=== PATIENT | male | born 2000 | race African-American/Black ===

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

== ENCOUNTER 2021-10-28 08:51 | Emergency (ER) | payer OTHER ==
[2021-10-28] MEDS ORDERED: Ondansetron ODT 4 MG TAB ONE (09:09)
[2021-10-28 10:01] LABS: #Eosinphils 0.2 thou/uL (0.0-0.7); #Lymphocytes 2.1 thou/uL (1.20-3.40); #Monocytes 0.9 thou/uL (0.11-0.59); #Neutrophils 3.9 thou/uL (1.40-6.50); %Basophils 0.4 % (0.0-1.0); %Eosinophils 2.7 % (0.0-10.0); %Lymphocytes 29.2 % (28.0-48.0); %Monocytes 12.7 % (0.0-4.0); Hemoglobin 14.8 g/dL (14.0-18.0); Mean Corpuscular HGB CONC 32.1 g/dL (32.0-36.0); Mean Corpuscular Hemoglobin 24.9 pg (25.0-35.0); Mean Corpuscular Volume 77.8 fL (78.0-98.0); Mean Platelet Volume 11.8 fL (7.4-10.4); Platelet Count 114 thou/uL (130-400); Platelet Morphology Comment Appears Decreased; RBC Distribution Width 13.6 % (11.5-14.5); RBC Morphology Normal; Red Blood Cell (RBC) Count 5.93 mill/uL (4.00-5.20); White Blood Cell (WBC) Count 7.1 thou/uL (4.8-10.8)
[2021-10-28 10:05] LABS: ALT (SGPT) 16 U/L (8-55); AST (SGOT) 16 U/L (5-34); Albumin 3.9 g/dL (3.5-5.0); Alkaline Phosphatase 117 U/L (50-130); Anion Gap 10 mmol/L (10-20); BUN (Urea Nitrogen) 8 mg/dL (8.9-20.6); Bilirubin, Total 0.7 mg/dL (0.2-1.2); CK (CPK) 276 U/L (30-200); Calc. Creatinine Clearance 0 mL/min (70-130); Calcium 9.2 mg/dL (7.8-10.44); Carbon Dioxide 28 mmol/L (22-29); Chloride 103 mmol/L (98-107); Glucose 100 mg/dL (70-105); Lipase 9 U/L (8-78); Potassium 4.4 mmol/L (3.5-5.1); Protein, Total 7.9 g/dL (6.0-8.3); Sodium 137 mmol/L (136-145)
== END 2021-10-28 10:48 | disposition home or self-care (01) ==
LOC: ERS 08:51
DX: R11.2 Nausea with vomiting, unspecified (principal)
CPT/HCPCS: 36415; 80053; 82550; 83690; 83735; 84484; 85025; 93005; Q0162

== ENCOUNTER 2021-12-21 09:25 | Emergency (ER) | payer OTHER ==
[2021-12-21] MEDS ORDERED: Ondansetron PF 4 MG/2 ML Vial ONE (10:24)
[2021-12-21] MEDS ORDERED: Morphine 4 MG/ML VIAL ONE (10:24)
[2021-12-21 10:31] LABS: Bacteria/HPF None Seen HPF (None Seen); Bilirubin 1+ (Negative); Blood, Urine Negative (Negative); Clarity Clear (Clear); Glucose, Urine (Dipstick) Normal (Negative); Ketone, Urine 10 mg/dL (Negative); Leukocyte Negative Leu/uL (Negative); Nitrite Negative (Negative); Protein, Urine (Dipstick) 70 mg/dL (Neg-Trace); RBC/HPF 0-3 HPF (0-3); Specific Gravity, Urine 1.037 (1.002-1.036); Squamous Epithelial 0-3 HPF (0-3); Urobilinogen Normal mg/dL (Less than 2)
[2021-12-21 11:01] LABS: Mean Corpuscular HGB CONC 31.5 g/dL (32.0-36.0); Mean Corpuscular Hemoglobin 24.5 pg (27.0-31.0); Mean Corpuscular Volume 77.7 fL (78.0-98.0); Red Blood Cell (RBC) Count 6.56 mill/uL (4.70-6.10); White Blood Cell (WBC) Count 14.6 thou/uL (4.8-10.8)
[2021-12-21 11:02] LABS: #Lymphocytes 1.5 thou/uL (1.20-3.40); #Monocytes 1.4 thou/uL (0.11-0.59); #Neutrophils 11.7 thou/uL (1.40-6.50); %Basophils 0.2 % (0.0-1.0); %Lymphocytes 10.1 % (21.0-51.0); %Monocytes 9.8 % (0.0-10.0); %Neutrophils 79.9 % (42.0-75.0); ALT (SGPT) 16 U/L (8-55); AST (SGOT) 16 U/L (5-34); Albumin 4.1 g/dL (3.5-5.0); Alkaline Phosphatase 103 U/L (40-110); Anion Gap 13 mmol/L (10-20); BUN (Urea Nitrogen) 12 mg/dL (8.9-20.6); Bilirubin, Total 0.6 mg/dL (0.2-1.2); Calc. Creatinine Clearance 0 mL/min (70-130); Calcium 9.6 mg/dL (7.8-10.44); Carbon Dioxide 25 mmol/L (22-29); Chloride 103 mmol/L (98-107); Estimated GFR 83; Globulin 4.3 g/dL (2.4-3.5); Glucose 101 mg/dL (70-105); Potassium 3.9 mmol/L (3.5-5.1); Protein, Total 8.4 g/dL (6.0-8.3); RBC Distribution Width 13.6 % (11.5-14.5)
[2021-12-21 11:05] LABS: Large Platelets SLIGHT; MDiff Complete? YES; Mean Platelet Volume 12.8 fL (7.4-10.4); Microcytosis SLIGHT = 6-15 cells (100X) (0-5/hpf); Platelet Count 85 thou/uL (130-400); Platelet Morphology Comment Appears Decreased; Polychromasia SLIGHT = 2-3 cells (100X) (0-2/hpf)
[2021-12-21 11:25] LABS: Sodium 137 mmol/L (136-145)
[2021-12-21] MEDS ORDERED: Iopamidol-370 76% 500 ML 1 ML ONE (11:34)
[2021-12-21] MEDS ORDERED: Piperacillin/Tazobactam 3.375 GM VIAL ONE (12:07)
[2021-12-21 12:12] LABS: SARS-CoV-2 NAA Rapid Test Not Detected (NotDetected)
== END 2021-12-21 13:33 | disposition home or self-care (01) ==
LOC: ERS 09:25
DX: R10.31 Right lower quadrant pain (principal); R51.9 Headache, unspecified; R11.2 Nausea with vomiting, unspecified; Z20.822 Contact with and (suspected) exposure to COVID-19
CPT/HCPCS: 36415; 74177; 80053; 81003; 81015; 83605; 83690; 85025; 87040; 87086; 96361; 96365; 96375; J2270; J2405; J2543; Q9967

== ENCOUNTER 2023-10-06 19:28 | Emergency (ER) | payer OTHER ==
[2023-10-06] MEDS ORDERED: Acetaminophen 500 MG TAB ONE (20:46)
[2023-10-06] MEDS ORDERED: Ondansetron ODT 4 MG TAB ONE (20:46)
== END 2023-10-06 20:57 | disposition home or self-care (01) ==
LOC: ERS 19:28
DX: K52.9 Noninfective gastroenteritis and colitis, unspecified (principal)
CPT/HCPCS: 99283; Q0162

== ENCOUNTER 2023-11-23 15:39 | Emergency (ER) | payer SELFPAY ==
[2023-11-23] MEDS ORDERED: diphenhydrAMINE 25 MG CAP ONE (17:04)
== END 2023-11-23 17:15 | disposition home or self-care (01) ==
LOC: ERS 15:39
DX: S60.561A Insect bite (nonvenomous) of right hand, initial encounter (principal); W57.XXXA Bitten or stung by nonvenomous insect and other nonvenomous arthropods, initial encounter
CPT/HCPCS: 99282

== ENCOUNTER 2023-11-24 07:22 | Emergency (ER) | payer SELFPAY | END 2023-11-24 08:06 | disposition home or self-care (01) | LOC: ERS 07:22 | DX: T63.461A Toxic effect of venom of wasps, accidental (unintentional), initial encounter (principal) | CPT/HCPCS: 99282 ==

== ENCOUNTER 2024-07-05 16:46 | Emergency (ER) | payer OTHER | END 2024-07-05 19:49 | disposition home or self-care (01) | LOC: ERS 16:46 | DX: R11.2 Nausea with vomiting, unspecified (principal) | CPT/HCPCS: 87428; 99283 ==